=== PATIENT | male | born 1950 | race Caucasian/White ===

== ENCOUNTER → 2017-10-24 | Outpatient (CLI) | payer MEDICARE, OTHER ==
--- NOTE | 2017-10-24 15:50 | US ---
EXAMINATION TYPE: US carotid duplex BILAT DATE OF EXAM: 10/24/2017 COMPARISON: NONE CLINICAL HISTORY: I25.2 Previous myocardial infarction. Possible obstruction on the right, no h/o str laisha, bruit EXAM MEASUREMENTS: RIGHT: Peak Systolic Velocity (PSV) cm/sec ----- Right CCA: 55.8 ----- Right ICA: 122.2 ----- Right ECA: 91.0 ICA/CCA ratio: 2.2 RIGHT: End Diastole cm/sec ----- Right CCA: 20.2 ----- Right ICA: 36.7 ----- Right ECA: 17.2 LEFT: Peak Systolic Velocity (PSV) cm/sec ----- Left CCA: 68.2 ----- Left ICA: 94.1 ----- Left ECA: 66.7 ICA/CCA ratio: 1.4 LEFT: End Diastole cm/sec ----- Left CCA: 26.1 ----- Left ICA: 40.9 ----- Left ECA: 17.2 VERTEBRALS (direction of flow): Right Vertebral: Antegrade Left Vertebral: Antegrade Rhythm: Normal Grayscale images show moderate to severe plaque centered near right carotid bulb. Velocity measuremen ts and ratios however remain within normal limits in the right internal carotid artery. There is more mild to moderate eccentric plaque near left carotid bulb. IMPRESSION: Right greater than left atherosclerotic change without hemodynamically significant stenos is clearly seen in either internal carotid artery.
== END | disposition home or self-care (01) ==
LOC: RADUSWWP 15:12
PROVIDERS: ATTEND Family Medicine
DX: I65.23 Occlusion and stenosis of bilateral carotid arteries (principal)
CPT/HCPCS: 93880

== ENCOUNTER 2021-09-20 18:13 | Inpatient (IN) | payer MEDICARE, OTHER ==
[2021-09-20] MEDS ORDERED: fentaNYL (PF) 50 MCG/ML 2 ML AMP IVP STA (18:49)
--- NOTE | 2021-09-20 19:13 | ED ---
General Adult HPI - General Chief complaint: Fall Stated complaint: Fall/Hip Injury Time Seen by Provider: 09/20/21 18:21 Source: patient, EMS Mode of arrival: EMS Limitations: no limitations - History of Present Illness Initial comments: Dictation was produced using [employer] dictation software. please excuse any grammatical, word or spelling errors. Chief Complaint: 71-year-old male presents with left hip pain after fall History of Present Illness: 71-year-old male he presents to the emergency Department with left hip pain after fall. Patient states he was going down the steps when he got distracted acute onto the street. He thought he was in the last step. He missed a step and fell forward landing on his left side. EMS was called patient is brought to the ER. Patient states he has severe left-sided hip pain. States he has had but did not lose any consciousness. Patient has any other complaints at this time. Denies any numbness distally paresthesias to the left lower extremity. Patient does not take any anticoagulation medications. He does have a lot of history of cardiac disease The ROS documented in this emergency department record has been reviewed and confirmed by me. Those systems with pertinent positive or negative responses have been documented in the HPI. All other systems are other negative and/or noncontributory. PHYSICAL EXAM: General Impression: Alert and oriented x3, not in acute distress HEENT: Normocephalic atraumatic, extra-ocular movements intact, pupils equal and reactive to light bilaterally, mucous membranes moist. Cardiovascular: Heart regular rate and rhythm Chest: Able to complete full sentences, no retractions, no tachypnea Abdomen: abdomen soft, non-tender, non-distended, no organomegaly Musculoskeletal: Pulses present and equal in all extremities, no peripheral ed castor, shortened and internally rotated left lower extremity Motor: no focal deficits noted Neurological: CN II-XII grossly intact, no focal motor or sensory deficits noted Skin: Intact with no visualized rashes Psych: Normal affect and mood ED course: 71-year-old male presents with left hip pain after fall. As upon arrival are within acceptable limits. Patient has gross deformity to his left hip. EKG interpretation: Ventricular rate 59, sinus bradycardia,. Interval 90, Q's 90, QTC 371. No TN prolongation, no QTC prolongation, no ST or T-wave changes noted. EKG compared to 09/29/2015 showing no changes. Overall, this EKG is unremarkable Laboratory evaluation obtained. Mild stress leukocytosis. Coag panel is unremarkable. Metabolic panel is normal. Chest x-ray unremarkable. Pelvis hip and femur x-ray demonstrates acute comminuted intertrochanteric fracture of the left femur. Computed tomography scan of brain is unremarkable. Patient reevaluated at bedside at 9:30 PM found to be in stable medical condition. Case discussed with on-call orthopedic surgeon, Dr. Rojas was willing to accept patients care. Dr. Brown will be on consult for medical management. - Related Data Home Medications Medication Instructions Recorded Confirmed Aspirin 81 mg PO DAILY 04/22/15 09/20/21 Atorvastatin [Lipitor] 80 mg PO HS 04/22/15 09/20/21 Citalopram Hydrobromide [CeleXA] 20 mg PO HS 04/22/15 09/20/21 Multivit-Min/FA/Lycopen/Lutein 1 tab PO DAILY@1200 04/23/15 09/20/21 [Centrum Silver Tablet] Acetaminophen/Diphenhydramine 1 tab PO HS 09/20/21 09/20/21 [Tylenol PM 500-25mg] Ergocalciferol (Vitamin D2) 1,250 mcg PO QMONTHLY 09/20/21 09/20/21 [Drisdol (50,000 Iu)] Omeprazole 20 mg PO BID 09/20/21 09/20/21 Previous Rx's Medication Instructions Recorded Furosemide [Lasix] 20 mg PO DAILY #90 tab 10/03/15 Losartan [Cozaar] 25 mg PO DAILY@1200 #90 tab 10/03/15 Spironolactone 50 mg PO DAILY #90 tab 10/03/15 carvediloL [Coreg] 3.125 mg PO BID #180 tablet 10/03/15 Allergies Allergy/AdvReac Type Severity Reaction Status Date / Time No Known Allergies Allergy Verified 09/20/21 19:29 Review of Systems ROS Statement: Those systems with pertinent positive or pertinent negative responses have been documented in the HPI. ROS Other: All systems not noted in ROS Statement are negative. Past Medical History Past Medical History: Chest Pain / Angina, Heart Failure, GERD/Reflux, Hypertension, Myocardial Infarction ([place]), Pneumonia Additional Past Medical History / Comment(s): SEE DR MARAVILLA'S H&P Last Myocardial Infarction Date:: 02/14/1999 History of Any Multi-Drug Resistant Organisms: MRSA Date of last positivie culture/infection: 04/24/15 MDRO Source:: sputum Past Surgical History: Heart Catheterization With Stent Additional Past Surgical History / Comment(s): HEART VALVE REPLACEMENT, EAR SURGERIES,HEART STENT X 1 Past Anesthesia/Blood Transfusion Reactions: No Reported Reaction Date of Last Stent Placement:: 1998 Past Psychological History: Anxiety Smoking Status: Former smoker Past Alcohol Use History: Daily Past Drug Use History: Marijuana - Past Family History Father Family Medical History: Cancer, Myocardial Infarction ([place]) Additional Family Medical History / Comment(s): hodgkins lymphoma Mother Family Medical History: Cancer Additional Family Medical History / Comment(s): colon Sister(s) History Unknown: Yes General Exam Limitations: no limitations Course Vital Signs 09/20/21 18:21 Temperature 99.3 F Pulse Rate 61 Respiratory 18 Rate Blood Pressure 104/68 O2 Sat by Pulse 98 Oximetry Medical Decision Making - Lab Data Result diagrams: 09/20/21 19:40 09/20/21 19:40 Lab Results 09/20/21 09/20/21 09/20/21 Range/Units 19:40 19:40 19:40 WBC 15.5 H (3.8-10.6) k/uL RBC 4.11 L (4.30-5.90) m/uL Hgb 13.2 (13.0-17.5) gm/dL Hct 40.7 (39.0-53.0) % MCV 99.0 (80.0-100.0) fL MCH 32.0 (25.0-35.0) pg MCHC 32.3 (31.0-37.0) g/dL RDW 11.1 L (11.5-15.5) % Plt Count 176 (150-450) k/uL MPV 10.6 Neutrophils % 82 % Lymphocytes % 10 % Monocytes % 5 % Eosinophils % 2 % Basophils % 0 % Neutrophils # 12.7 H (1.3-7.7) k/uL Lymphocytes # 1.6 (1.0-4.8) k/uL Monocytes # 0.7 (0-1.0) k/uL Eosinophils # 0.3 (0-0.7) k/uL Basophils # 0.1 (0-0.2) k/uL PT 11.0 (9.0-12.0) sec INR 1.0 (<1.2) APTT 23.2 (22.0-30.0) sec Sodium 138 (137-145) mmol/L Potassium 4.2 (3.5-5.1) mmol/L Chloride 103 (98-107) mmol/L Carbon Dioxide 27 (22-30) mmol/L Anion Gap 8 mmol/L BUN 17 (9-20) mg/dL Creatinine 1.03 (0.66-1.25) mg/dL Est GFR (CKD-EPI)AfAm 84 (>60 ml/min/1.73 sqM) Est GFR (CKD-EPI)NonAf 73 (>60 ml/min/1.73 sqM) Glucose 137 H (74-99) mg/dL Calcium 8.8 (8.4-10.2) mg/dL Total Bilirubin 0.5 (0.2-1.3) mg/dL AST 26 (17-59) U/L ALT 17 (4-49) U/L Alkaline Phosphatase 93 (38-126) U/L Total Protein 7.3 (6.3-8.2) g/dL Albumin 4.3 (3.5-5.0) g/dL Disposition Clinical Impression: Hip fracture Disposition: ADMITTED IP TO THIS [facility] Condition: Serious Referrals: Edy Brown MD [Primary Care Provider] - 1-2 days Decision Time: 21:29
--- NOTE | 2021-09-20 19:27 | XR ---
EXAMINATION TYPE: XR chest 1V portable DATE OF EXAM: 09/20/2021 COMPARISON: 12/02/2015 HISTORY: Fall. Pain TECHNIQUE: Single view FINDINGS: Heart is normal. Lungs are clear of consolidation. There are no hilar masses. Costophrenic angles are clear. There is left axillary pacemaker. IMPRESSION: No active clinical pulmonary disease. No change.
--- NOTE | 2021-09-20 19:30 | XR ---
EXAMINATION TYPE: XR pelvis AP view DATE OF EXAM: 09/20/2021 COMPARISON: NONE HISTORY: Fall. Pain TECHNIQUE: 2 views FINDINGS: There is acute comminuted intertrochanteric fracture left femur. There is coxa vera deformi ty. No dislocation. Pelvic ring is intact. IMPRESSION: Acute comminuted intertrochanteric fracture left femur.
--- NOTE | 2021-09-20 19:31 | XR ---
EXAMINATION TYPE: XR Hip Complete LT DATE OF EXAM: 09/20/2021 COMPARISON: NONE HISTORY: Fall. Pain TECHNIQUE: 2 views FINDINGS: There is acute comminuted intertrochanteric fracture left femur with some impaction. No dis location. Acetabulum is intact. IMPRESSION: Acute left hip fracture as above.
--- NOTE | 2021-09-20 19:35 | XR ---
EXAMINATION TYPE: XR femur LT DATE OF EXAM: 09/20/2021 COMPARISON: NONE HISTORY: Pain TECHNIQUE: 4 views FINDINGS: There is acute comminuted intertrochanteric fracture left femur. There is coxa vera deformi ty. No dislocation. Knee joint appears anatomic. IMPRESSION: Acute intertrochanteric comminuted fracture left femur.
[2021-09-20 19:59] LABS: Basophils # (A) 0.1 k/uL (0-0.2); Basophils % (A) 0 %; Eosinophils # (A) 0.3 k/uL (0-0.7); Eosinophils % (A) 2 %; HCT 40.7 % (39.0-53.0); HGB 13.2 gm/dL (13.0-17.5); Lymphocytes # (A) 1.6 k/uL (1.0-4.8); Lymphocytes % (A) 10 %; MCHC 32.3 g/dL (31.0-37.0); Mean Platelet Volume 10.6; Monocytes # (A) 0.7 k/uL (0-1.0); Monocytes % (A) 5 %; Neutrophils # (A) 12.7 k/uL (1.3-7.7); Neutrophils % (A) 82 %; Platelet Count 176 k/uL (150-450); RBC 4.11 m/uL (4.30-5.90); RDW 11.1 % (11.5-15.5); WBC 15.5 k/uL (3.8-10.6)
[2021-09-20 20:11] LABS: Albumin 4.3 g/dL (3.5-5.0); Calcium 8.8 mg/dL (8.4-10.2); Potassium 4.2 mmol/L (3.5-5.1); Total Bilirubin 0.5 mg/dL (0.2-1.3); Total Protein 7.3 g/dL (6.3-8.2)
[2021-09-20 20:21] LABS: Partial Thromboplastin Time 23.2 sec (22.0-30.0)
--- NOTE | 2021-09-20 21:18 | CT ---
EXAMINATION TYPE: CT brain wo con DATE OF EXAM: 09/20/2021 COMPARISON: None HISTORY: fall CT DLP: 1107.4 mGycm Automated exposure control for dose reduction was used. Images obtained of the brain with no contrast. There is mild cerebral atrophy. There is no mass effect or midline shift. No sign of intracranial hem orrhage. The calvarium is intact. Skull base is intact. There is previous left side mastoid sinus jose angel yesenia. IMPRESSION: Negative CT scan of the brain. Previous left side mastoid surgery. No acute intracranial abnormality.
[2021-09-20] MEDS ORDERED: NALOXONE 0.4 MG/ML 1 ML VIAL IV PRN (21:21)
[2021-09-20] MEDS ORDERED: ONDANSETRON 4 MG/2 ML VIAL IVP PRN (21:21)
[2021-09-20] MEDS ORDERED: ACETAMINOPHEN TAB 325 MG TAB PO PRN (21:21)
[2021-09-20] MEDS: SODIUM CHLORIDE 0.9% 1,000 ML IV SCH (22:38)
[2021-09-20] MEDS: MORPHINE SULFATE 4 MG/ML SYRINGE IV PRN (22:39)
[2021-09-21] MEDS: MORPHINE SULFATE 4 MG/ML SYRINGE IV PRN ×4 (03:02→16:47)
[2021-09-21] MEDS: SODIUM CHLORIDE 0.9% 1,000 ML IV SCH ×3 (07:30→21:24)
[2021-09-21] MEDS ORDERED: PANTOPRAZOLE 40 MG/10 ML VIAL IV SCH (09:00)
--- NOTE | 2021-09-21 10:39 | P.HPOR ---
History of Present Illness H&P Date: 09/21/21 This patient is a 71-year-old male with past medical history of CAD status-post stent placement, heart valve replacement, pacemaker, CHF, hypertension that presented typically reported emergency department on 09/20/21 with complaints of left hip pain following a fall at home. The patient states he tripped going down the steps of his patio, and fell directly into the left hip. He is unable to get up or ambulate. His called EMS and he was transported to [facility] emergency department. X-rays of the left hip in the emergency department revealed an intertrochanteric hip fracture. He is admitted to the care of Dr. Rojas with a consult placed to Dr. Brown for preoperative medi tab clearance. Patient is examined bedside this morning. He states his pain is isolated to the left hip pain. He denies additional complaints or injuries at this time. He states he is not on blood thinners besides 81 mg aspirin. He did not hit his head when he fell. He denies chest pain, shortness breath, nausea, vomiting, fevers, chills, numbness or tingling in the left lower extremity. Vital signs stable. Past Medical History Past Medical History: Chest Pain / Angina, Heart Failure, GERD/Reflux, Hypertension, Myocardial Infarction ([place]), Pneumonia Additional Past Medical History / Comment(s): SEE DR MARAVILLA'S H&P Last Myocardial Infarction Date:: 02/14/1999 History of Any Multi-Drug Resistant Organisms: MRSA Date of last positivie culture/infection: 04/24/15 MDRO Source:: sputum Past Surgical History: Heart Catheterization With Stent Additional Past Surgical History / Comment(s): HEART VALVE REPLACEMENT, EAR SURGERIES,HEART STENT X 1 Past Anesthesia/Blood Transfusion Reactions: No Reported Reaction Date of Last Stent Placement:: 1998 Past Psychological History: Anxiety Additional Psychological History / Comment(s): PTSD. . Has 3 adult children. Normally lives in [place]. His admission for 1 month to stay in her home in [place]. He is originally from this region. He moved to [place] when he was in the [employer]. 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 Has now retir ed. Has a history of tobacco use in the past. Has been many years. No history of alcohol use. Recreational drug use. When he was in the [employer] travels mostly to [place]. No international travel since his experience. No current animal exposures. Smoking Status: Former smoker Past Alcohol Use History: Daily Additional Past Alcohol Use History / Comment(s): QUIT SMOKING 2012 APPROX,SMOKED APPROX 40 YRS 2PPD Past Drug Use History: Marijuana - Past Family History Father Family Medical History: Cancer, Myocardial Infarction ([place]) Additional Family Medical History / Comment(s): hodgkins lymphoma Mother Family Medical History: Cancer Additional Family Medical History / Comment(s): colon Sister(s) History Unknown: Yes Medications and Allergies Home Medications Medication Instructions Recorded Confirmed Type Aspirin 81 mg PO DAILY 04/22/15 09/20/21 History Atorvastatin [Lipitor] 80 mg PO HS 04/22/15 09/20/21 History Citalopram Hydrobromide [CeleXA] 20 mg PO HS 04/22/15 09/20/21 History Multivit-Min/FA/Lycopen/Lutein 1 tab PO DAILY@1200 04/23/15 09/20/21 History [Centrum Silver Tablet] Furosemide [Lasix] 20 mg PO DAILY #90 tab 10/03/15 09/20/21 Rx Losartan [Cozaar] 25 mg PO DAILY@1200 #90 tab 10/03/15 09/20/21 Rx Spironolactone 50 mg PO DAILY #90 tab 10/03/15 09/20/21 Rx carvediloL [Coreg] 3.125 mg PO BID #180 tablet 10/03/15 09/20/21 Rx Acetaminophen/Diphenhydramine 1 tab PO HS 09/20/21 09/20/21 History [Tylenol PM 500-25mg] Ergocalciferol (Vitamin D2) 1,250 mcg PO QMONTHLY 09/20/21 09/20/21 History [Drisdol (50,000 Iu)] Omeprazole 20 mg PO BID 09/20/21 09/20/21 History Allergies Allergy/AdvReac Type Severity Reaction Status Date / Time No Known Allergies Allergy Verified 09/20/21 19:29 Physical Examination On examination, the patient is sitting up in bed in no apparent distress. He is alert and oriented 3. His head appears normocephalic and atraumatic. His breathing appears nonlabored. On inspection of his bilateral upper extremities, there are no obvious deformities or signs of trauma. On inspection of his right lower extremity, there are no obvious deformities or signs of trauma. On inspection of the left hip, there are no lacerations, abrasions, ecchymosis, erythema. Range of motion of the left hip is not tested at this time. There is no pain to palpation of the left knee, lower leg, ankle, foot. Patient has good strength and range of motion of the left ankle and toes, motor and sensory function is intact of the left lower extremity. Dorsalis pedis pulses easily palpable, the left lower extremity is warm and well perfused with brisk capillary refill distally. Calf is soft and nontender to palpation. Results Left hip and pelvis x-ray 09/21/21: Displaced intertrochanteric left hip fracture. - Labs Labs: Abnormal Lab Results - Last 24 Hours (Table) 09/20/21 09/20/21 Range/Units 19:40 19:40 WBC 15.5 H (3.8-10.6) k/uL RBC 4.11 L (4.30-5.90) m/uL RDW 11.1 L (11.5-15.5) % Neutrophils # 12.7 H (1.3-7.7) k/uL Glucose 137 H (74-99) mg/dL H & H 09/20/21 Range/Units 19:40 Hgb 13.2 (13.0-17.5) gm/dL Hct 40.7 (39.0-53.0) % Coagulation 09/20/21 Range/Units 19:40 INR 1.0 (<1.2) Result Diagrams: 09/20/21 19:40 09/20/21 19:40 Assessment and Plan Assessment: Left intertrochanteric hip fracture Plan: - The clinical and imaging findings were discussed with the patient. The patient was discussed in detail with Dr. Rojas. Recommend closed reduction and insertion gamma nail left hip this afternoon, pending medical clearance and consent. Patient gave verbal consent for surgery bedside this morning. - Non-weight bearing left lower extremity. Bed rest. - Pain management as needed. - Dr. Brown consulted for medical clearance. - NPO diet. Will plan for OR this afternoon.
--- NOTE | 2021-09-21 11:52 | CONS ---
CONSULTATION DATE OF SERVICE: 09/20/2021 CHIEF COMPLAINT: Fracture of left hip. HISTORY OF PRESENT ILLNESS: This is another admission for this 71-year-old white male who has been in fairly good health. He has had some cardiac issues in the past, but none of late. He was going down some stairs and thought that he only had one step to go, but there were actually two, and he fell on his left hip and sustained a left hip fracture. He denies any dizziness, lightheadedness, syncope, other injuries, shortness of breath, orthopnea, etc. REVIEW OF SYSTEMS: He has had no other symptoms than that involving the hip. He has had no shortness of breath, chest pain, abdominal pain, nausea, vomiting, hematemesis, melena, hematochezia, jaundice, hepatitis, renal failure, incontinence, nocturia, hematuria, etc. Past medical history, family history, and personal and social histories reveal that he is NOT ALLERGIC TO ANY MEDICATION. The medication he is taking currently includes: 1. Carvedilol 3.125 two tablets twice a day. 2. Lasix 20 mg once a day. 3. Losartan 25 mg once a day. 4. Atorvastatin 80 once a day. 5. Spironolactone 50 mg once a day. 6. Citalopram 20 mg once a day. 7. Gabapentin 300 mg at bedtime. 8. Omeprazole 20 mg twice a day. 9. Vitamin D 5000 units a day. 10.Aspirin 81 mg a day. He has had cardiac issues in the past and has had a biologic aortic valve replacement. He had a prior MA. He has had no recent chest pains, palpitations, orthopnea, etc. He used to smoke but does not any longer. He does exercise. PHYSICAL EXAMINATION: Blood pressure is 139/81 with a pulse of 83, respirations of 16. He is afebrile. In general he appears to be well developed, well developed, well nourished, in no acute distress. Skin color is normal. Skin is warm and dry. Lymph nodes are not enlarged. Head, ears, eyes, nose, mouth and throat are normal. Carotids are normal. Chest is clear. Cardiac exam demonstrates what sounds like a regular rate and rhythm. Abdomen is soft and nontender without any visceromegaly or masses. Bowel sounds are present. Extremities are normal except for the left hip and neurologically he is intact. He is admitted to the hospital with the diagnoses: 1. Fracture of left hip. 2. History of coronary artery disease. 3. History of aortic valve disease with aortic valve replacement. PLAN: 1. Bedrest. 2. IV fluids. 3. Preoperative cardiology consult. 4. He is cleared for surgery from my point of view. Thank you. Respectfully, Edy Brown II, M.D. ROSALBA / LEONID: [id number] /
--- NOTE | 2021-09-21 12:24 | CA ---
Transthoracic Echo Report Name: Colin Shafer Age: 71 Gender: M : 1950 Exam Date: 09/21/2021 10:57 Exam Location: [facility] Ht (in): 70 Wt (lb): 245 Ordering Physician: Kim Martinez Attending/Referring Phys: [id number], Juan [employer] Procedure CPT: Indications: LV function, surgical clearance Cardiac Hx: Technical Quality: Contrast 1: Total Dose (mL): Contrast 2: Total Dose (mL): MEASUREMENTS (Male / Female) Normal Values 2D ECHO LV Diastolic Diameter PLAX 5.5 cm 4.2 - 5.9 / 3.9 - 5.3 cm LV Systolic Diameter PLAX 3.8 cm IVS Diastolic Thickness 1.8 cm 0.6 - 1.0 / 0.6 - 0.9 cm LVPW Diastolic Thickness 1.4 cm 0.6 - 1.0 / 0.6 - 0.9 cm LV Relative Wall Thickness 0.6 LA Volume 71.9 cm??? 18 - 58 / 22 - 52 cm??? DOPPLER AV Peak Velocity 213.0 cm/s AV Peak Gradient 18.1 mmHg AV Mean Velocity 152.6 cm/s AV Mean Gradient 10.3 mmHg AV Velocity Time Integral 41.2 cm LVOT Peak Velocity 74.6 cm/s LVOT Peak Gradient 2.2 mmHg MV Area PHT 3.8 cm??? Mitral E Point Velocity 88.2 cm/s Mitral A Point Velocity 120.8 cm/s Mitral E to A Ratio 0.7 MV Deceleration Time 200.2 ms TR Peak Velocity 224.9 cm/s TR Peak Gradient 20.2 mmHg FINDINGS Left Ventricle Moderately increased left ventricular wall thickness. Apical septal, apical inferior katz hypokinesis. Left ventricular ejection fraction is estimated at 40-45%. Right Ventricle Right ventricle not well visualized. Right Atrium Right atrium not well visualized. Catheter/pacemaker wire in the right atrial cavity. Left Atrium Moderate left atrial dilatation. No evidence for an atrial septal defect. Mitral Valve Mitral valve not well visualized. Moderate mitral regurgitation. Aortic Valve Mild aortic stenosis with a peak gradient of 18 mmHg and a mean gradient of 10 mmHg. No aortic regurgitation. Tricuspid Valve Mild tricuspid regurgitation. Pulmonic Valve Pulmonic valve not well visualized. Pericardium No pericardial effusion. Aorta Aortic root and proximal ascending aorta not well visualized. CONCLUSIONS #1. Suboptimal study #2. Mild to moderate impaired LV function with hypokinesis of the septal and inferoapical area. Ejection fraction is 40-45%. #3. Mild aortic stenosis. #4. Moderate mitral regurgitation Previewed by: Dr. Sahara Ellington MD (Electronically Signed) Final Date: 21 September 2021 12:23
[2021-09-21] MEDS: LOSARTAN 25 MG TAB PO SCH (12:33)
--- NOTE | 2021-09-21 12:34 | P.CRDCN ---
History of Present Illness Consult date: 09/21/21 History of present illness: HISTORY OF PRESENT ILLNESS: This is a 71-year-old male with a past medical history significant for coronary artery disease with previous stenting, hypertension, ischemic cardiomyopathy with previous AICD implantation, and congestive heart failure. Patient [facility] with a [facility] We have been asked to see the patient in consultation for surgical clearance. Patient examined at the bedside. The patient presented to the hospital after suffering a fall at home. He was found to have a left hip fracture. He is scheduled for surgery this afternoon with orthopedics. The patient denies having any chest pain or pressure. He denies shortness of breath. He is laying flat in bed and appears to be comfortable. Patient's vital signs are stable. He is on room air with oxygen saturations greater then 92%. * EKG reveals sinus bradycardia with no signs of acute ischemia * Chest xray negative for acute process * Laboratory data: WBC 15.5. Hemoglobin 13.2. Platelet count 176. Sodium 138. Potassium 4.2. BUN 17. Creatinine 1.03. * Current home cardiac medications include Lipitor 80 mg at night, Lasix 20 mg daily, losartan 25 mg daily, spironolactone 50 mg daily, carvedilol 3.125 mg twice a day, and aspirin 81 mg daily * Echocardiogram obtained revealing ejection fraction 40-45%, apical septal, ap ical inferior wall hypokinesis, mild aortic stenosis, mild tricuspid regurgitation, moderate mitral regurgitation REVIEW OF SYSTEMS: At the time of my exam: CONSTITUTIONAL: Denies fever or chills. HEENT: Denies blurred vision, vision changes, or eye pain. Denies hemoptysis CARDIOVASCULAR: Denies chest pain. Denies orthopnea. Denies PND. Denies palpitations RESPIRATORY: Denies shortness of breath. GASTROINTESTINAL: Denies abdominal pain. Denies nausea or vomiting. HEMATOLOGIC: Denies bleeding disorders. GENITOURINARY: Denies any blood in urine. SKIN: Denies pruitis. Denies rash. PHYSICAL EXAM: VITAL SIGNS: Reviewed. GENERAL: Well-developed in no acute distress. HEENT: Head is normocephalic. Pupils are equal, round. Sclerae anicteric. Mucous membranes of the mouth are moist. Neck supple. No JVD or thyromegaly LUNGS: Respirations even and unlabored. Lungs essentially clear to auscultation bilaterally. HEART: Regular rate and rhythm. S1 and S2 heard. ABDOMEN: Soft. Nondistended. Nontender. EXTREMITIES: Normal range of motion. No clubbing or cyanosis. Peripheral pulses intact. No lower extremity edema NEUROLOGIC: Awake and alert. Oriented x 3. ASSESSMENT: Left hip fracture, status post fall Coronary artery disease with previous stenting, exact details unknown Ischemic cardiomyopathy with previous AICD implantation Chronic congestive heart failure with reduced ejection fraction, currently euvo lemic Hypertension Hyperlipidemia PLAN: 2D echo obtained and reviewed Continue home cardiac medications Patient is at higher risk due to cardiac history. He denies any angina and is currently euvolemic No absolute contraindications from a cardiac standpoint to undergo surgery with orthopedics Further recommendations pending patient course Nurse practitioner note has been reviewed by physician. Signing provider agrees with the documented findings, assessment, and plan of care. Past Medical History Past Medical History: Chest Pain / Angina, Heart Failure, GERD/Reflux, Hypertension, Myocardial Infarction (NM), Pneumonia Additional Past Medical History / Comment(s): SEE DR MARAVILLA'S H&P Last Myocardial Infarction Date:: 02/14/1999 History of Any Multi-Drug Resistant Organisms: MRSA Date of last positivie culture/infection: 04/24/15 MDRO Source:: sputum Past Surgical History: Heart Catheterization With Stent Additional Past Surgical History / Comment(s): HEART VALVE REPLACEMENT, EAR SURGERIES,HEART STENT X 1 Past Anesthesia/Blood Transfusion Reactions: No Reported Reaction Date of Last Stent Placement:: 1998 Past Psychological History: Anxiety Additional Psychological History / Comment(s): PTSD. . Has 3 adult felecia dudley. Normally lives in [place]. His admission for 1 month to stay in her home in [place]. He is originally from this region. He moved to [place] when he was in the [employer]. 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 Has a history of tobacco use in the past. Has been many years. No history of alcohol use. Recreational drug use. When he was in the [employer] travels mostly to [place]. No international travel since his experience. No current animal exposures. Smoking Status: Former smoker Past Alcohol Use History: Daily Additional Past Alcohol Use History / Comment(s): QUIT SMOKING 2012 APPROX,SMOKED APPROX 40 YRS 2PPD Past Drug Use History: Marijuana - Past Family History Father Family Medical History: Cancer, Myocardial Infarction (NM) Additional Family Medical History / Comment(s): hodgkins lymphoma Mother Family Medical History: Cancer Additional Family Medical History / Comment(s): colon Sister(s) History Unknown: Yes Medications and Allergies Home Medications Medication Instructions Recorded Confirmed Type Aspirin 81 mg PO DAILY 04/22/15 09/20/21 History Atorvastatin [Lipitor] 80 mg PO HS 04/22/15 09/20/21 History Citalopram Hydrobromide [CeleXA] 20 mg PO HS 04/22/15 09/20/21 History Multivit-Min/FA/Lycopen/Lutein 1 tab PO DAILY@1200 04/23/15 09/20/21 History [Centrum Silver Tablet] Furosemide [Lasix] 20 mg PO DAILY #90 tab 10/03/15 09/20/21 Rx Losartan [Cozaar] 25 mg PO DAILY@1200 #90 tab 10/03/15 09/20/21 Rx Spironolactone 50 mg PO DAILY #90 tab 10/03/15 09/20/21 Rx carvediloL [Coreg] 3.125 mg PO BID #180 tablet 10/03/15 09/20/21 Rx Acetaminophen/Diphenhydramine 1 tab PO HS 09/20/21 09/20/21 History [Tylenol PM 500-25mg] Ergocalciferol (Vitamin D2) 1,250 mcg PO QMONTHLY 09/20/21 09/20/21 History [Drisdol (50,000 Iu)] Omeprazole 20 mg PO BID 09/20/21 09/20/21 History Allergies Allergy/AdvReac Type Severity Reaction Status Date / Time No Known Allergies Allergy Verified 09/20/21 19:29 Physical Exam Vitals: Vital Signs Temp Pulse Pulse Resp BP BP Pulse Ox 09/21/21 03:05 99.0 F 70 16 119/78 95 09/21/21 00:00 97.6 F 18 136/90 95 09/20/21 22:53 69 14 123/77 96 09/20/21 18:21 99.3 F 61 18 104/68 98 Intake and Output 09/20/21 09/21/21 09/21/21 22:59 06:59 14:59 Output Total 200 Balance -200 Output: Urine 200 Other: Voiding Method Urinal Urinal Weight 111.13 kg 111.13 kg Results 09/20/21 19:40 09/20/21 19:40 Cardiac Enzymes 09/20/21 Range/Units 19:40 AST 26 (17-59) U/L Coagulation 09/20/21 Range/Units 19:40 PT 11.0 (9.0-12.0) sec APTT 23.2 (22.0-30.0) sec CBC 09/20/21 Range/Units 19:40 WBC 15.5 H (3.8-10.6) k/uL RBC 4.11 L (4.30-5.90) m/uL Hgb 13.2 (13.0-17.5) gm/dL Hct 40.7 (39.0-53.0) % Plt Count 176 (150-450) k/uL Comprehensive Metabolic Panel 09/20/21 Range/Units 19:40 Sodium 138 (137-145) mmol/L Potassium 4.2 (3.5-5.1) mmol/L Chloride 103 (98-107) mmol/L Carbon Dioxide 27 (22-30) mmol/L BUN 17 (9-20) mg/dL Creatinine 1.03 (0.66-1.25) mg/dL Glucose 137 H (74-99) mg/dL Calcium 8.8 (8.4-10.2) mg/dL AST 26 (17-59) U/L ALT 17 (4-49) U/L Alkaline Phosphatase 93 (38-126) U/L Total Protein 7.3 (6.3-8.2) g/dL Albumin 4.3 (3.5-5.0) g/dL Current Medications Generic Name Dose Route Start Last Admin Trade Name Freq PRN Reason Stop Dose Admin Acetaminophen 650 mg 09/20/21 21:21 09/20/21 22:39 Acetaminophen Tab 325 Mg Tab PO 650 mg Q6HR PRN Administration Mild Pain or Fever > 100.5 Aspirin 81 mg 09/22/21 09:00 Aspirin 81 Mg PO DAILY [facility] Atorvastatin Calcium 80 mg 09/21/21 21:00 Atorvastatin 80 Mg Tab PO HS [facility] Carvedilol 3.125 mg 09/21/21 21:00 Carvedilol 3.125 Mg Tab PO BID [facility] Citalopram Hydrobromide 20 mg 06/07/22 21:00 Citalopram Hydrobromide 20 Mg Tab PO HS [facility] Sodium Chloride 1,000 mls @ 130 mls/hr 09/20/21 21:30 09/21/21 07:30 Saline 0.9% IV Not Given .Q7H42M [facility] Losartan Potassium 25 mg 09/21/21 12:00 Losartan 25 Mg Tab PO DAILY@1200 CALLIE Morphine Sulfate 4 mg 09/20/21 21:21 09/21/21 07:41 Morphine Sulfate 4 Mg/Ml Syringe IV 4 mg Q4HR PRN Administration Severe Pain Naloxone HCl 0.2 mg 09/20/21 21:21 Naloxone 0.4 Mg/Ml 1 Ml Vial IV Q2M PRN Opioid Reversal Ondansetron HCl 4 mg 09/20/21 21:21 09/21/21 07:40 Ondansetron 4 Mg/2 Ml Vial IVP 4 mg Q8HR PRN Administration Nausea And Vomiting Pantoprazole Sodium 40 mg 09/22/21 07:30 Pantoprazole 40 Mg Tablet PO DAILY@0730 [facility] Intake and Output 09/20/21 09/21/21 09/21/21 22:59 06:59 14:59 Output Total 200 Balance -200 Output: Urine 200 Other: Voiding Method Urinal Urinal Weight 111.13 kg 111.13 kg 09/20/21 19:40 09/20/21 19:40
[2021-09-21] MEDS ORDERED: KETAMINE 10 MG/ML 20 ML VIAL ONE (18:09)
[2021-09-21] MEDS ORDERED: fentaNYL (PF) 50 MCG/ML 2 ML AMP ONE (18:09)
[2021-09-21] MEDS ORDERED: PROPOFOL 10 MG/ML 20 ML VIAL IV ONE (18:09)
[2021-09-21] MEDS ORDERED: MIDAZOLAM 2 MG/2 ML VIAL ONE (18:09)
[2021-09-21] MEDS ORDERED: IV FLUID CONTINUATION 1,000 ML IV ONE (18:13)
[2021-09-21] MEDS ORDERED: LACTATED RINGERS 1,000 ML IV ONE ×2 (19:04→20:46)
--- NOTE | 2021-09-21 20:38 | PN ---
PROGRESS NOTE CHIEF COMPLAINT: Hip fracture. HISTORY OF PRESENT ILLNESS: This gentleman is doing well and he is going to the OR later today. PHYSICAL EXAMINATION: His chest is clear. Cardiac exam is normal sinus rhythm. The abdomen is soft and nontender. IMPRESSION: 1. Fracture of the left hip. 2. History of cardiac disease. PLAN: Preoperative management, including a cardiology consult. ROSALBA / CELIAN: [id number] /
[2021-09-21] MEDS ORDERED: HYDROmorphone 0.5 MG/0.5 ML SYRINGE IVP PRN ×2 (20:39)
[2021-09-21] MEDS ORDERED: HYDROcodone/APAP 5-325MG 1 EACH TAB PO PRN (20:39)
--- NOTE | 2021-09-21 20:42 | P.OP ---
Date of Procedure: 09/21/21 Preoperative Diagnosis: 1. Left comminuted peritrochanteric hip fracture 2. History of coronary artery disease with a stent 3. CHF Postoperative Diagnosis: Same Procedure(s) Performed: Operative fixation of left intertrochanteric hip fracture with long intramedullary hip screw Anesthesia: GRETTA Surgeon: Francis Rojas Advertising Sales Manager #1: Courtney Hernandez Estimated Blood Loss (ml): 300 IV fluids (ml): 1,000 Urine output (ml): 300 Pathology: none sent Condition: stable Disposition: PACU Indications for Procedure: I met with the patient and their family preoperatively to discuss their injury and treatment options. They have an extra-capsular, intertrochanteric hip fracture and my recommendation was to stabilize the fracture with an intramedullary hip screw to facilitate early mobilization. We discussed the potential risks and complications of this surgical procedure including but certainly not limited to risks from anesthesia, superficial infection, deep infection, fracture nonunion, fracture malunion, hardware failure including broken hardware, varus collapse with lag screw cut out of the femoral head, progression of hip arthritis, limb length discrepancy, symptomatic hardware, need for further surgery including hardware removal and conversion to arthroplasty, DVT, PE, acute coronary event, pressure ulcers, urinary tract infection, failure to thrive, an inability to regain preinjury level of function, and possibly . The patient and their family understand these potential complications and also awknowledge that other less common complications are possible. They provided both their verbal and written consent to go forward with operative fixation of their hip fracture with an intramedullary hip screw. Description of Procedure: The patient was identified in preoperative holding and the correct operative extremity was marked with my initials. I reviewed the consent form with the patient and their family and all of their questions were answered. The patient was then brought back to the operating room by anesthesia. Anesthesia, preoperative antibiotics, and tranexamic acid were given by the anesthesia team while on the rgonzales. Both ankles were padded with webril and boots for the [place] table were applied. The patient was then carefully transferred onto the [place] table. A perineal post was immediately placed. The contralateral arm was secured on a well-padded arm iniguez. The ipsilateral arm was draped across the chest and secured with a pillow, foam, and paper tape to allow access to the proximal femur. Nonsterile drapes were applied to the operative extremity. The height of the table was elevated and the contralateral extremity was dropped towards the floor to facilitate imaging. A timeout was performed identifying the correct patient, operative extremity, and procedure. Fluoroscopy was brought in to assess the fracture. A provisional reduction was performed using longitudinal traction, adduction, and internal rotation. An AP and lateral view were obtained to assess the reduction. The operative extremity was then prepped and draped in the standard sterile fashion. A straight incision was made at the tip of the greater trochanter and extended proximally for 3 cm. Skin and subcutaneous tissues were incised sharply. The underlying fascia was incised in line with the skin incision. An awl was placed just medial to the tip of the greater trochanter on the AP view and colinear with the canal on the lateral view. A 3.2 mm guide pin was then advanced into the proximal femur. The position of the guidepin was verified with fluoroscopy. An opening reamer and soft tissue cannula were placed over the guidepin and used to open the proximal femur to the level of the lesser trochanter. The 3.2 mm guide pin and opening reamer were removed. The long ball-tipped guidewire was placed down to the level of the superior patella. The position of the guidewire was checked on orthogonal views. I then sequentially reamed up to an 11 mm reamer which generated chatter. I then reamed up to 12.5 mm. A long gamma nail was dispensed, hooked up to the targeting arm and I verified that the trochar through the targeting arm lined up with the slots on the nail. The nail was then impacted into the femur until the appropriate depth had been reached. The ball-tipped guidewire was removed. A small stab incision was made over the lateral aspect of the femur using the targeting arm as a reference for the lag screw. Incision was carried down to the skin and fascia down to the lateral cortex of the femur. The trocar was then placed up to the lateral cortex of the femur and a guidepin was placed in the low center position on the AP view and centered in the femoral head on the lateral view. Once the position of the guidewire was verified, we reamed to appropriate depth and placed a lag screw over the guidewire and into the femoral head. The position of the lag screw was assessed with fluoroscopy. The guidewire was then removed from the femoral head. The set screw was placed proximally, brought fully down and then released a quarter turn to allow compression. 2 distal interlocking screws were placed using the perfect kaibab, freehand technique.The trocar and sleeve were placed to the lateral cortex of the femur. We then drilled and placed a distal interlocking screw. Final fluoroscopic images were taken showing excellent reduction of the fracture and appropriate position of the implants. All wounds were thoroughly irrigated and closed in layers. Sterile dressings were applied. The drapes were taken down, the patient was transferred off the [place] table, and was brought to recovery having tolerated the procedure well. Courtney Hernandez PA-C was required as a skilled assistant manager quality management for patient positioning, retraction, placement of implants, closure of wounds, and application of dressings. PLAN: Due to the comminution of the fracture I would like him to toe touch weight-bear on his operative extremity. 2 doses of postoperative antibiotics. DVT prophylaxis with aspirin 81 mg twice a day starting the day of surgery. Dressing change on postoperative day #2. Appreciate [employer] [employer] assistance with perioperative medical management. Discharge planning in process.
[2021-09-21] MEDS: SENNOSIDES-DOCUSATE SODIUM 1 EACH TAB PO SCH (21:24)
[2021-09-21] MEDS: CITALOPRAM HYDROBROMIDE 20 MG TAB PO SCH (21:24)
[2021-09-21] MEDS: carvediloL 3.125 MG TAB PO SCH (21:24)
[2021-09-21] MEDS: ASPIRIN 81 MG PO SCH (21:24)
[2021-09-21] MEDS: ATORVASTATIN 80 MG TAB PO SCH (21:24)
[2021-09-21] MEDS: HYDROmorphone 0.5 MG/0.5 ML SYRINGE IVP PRN (22:03)
--- NOTE | 2021-09-21 22:10 | XR ---
EXAMINATION TYPE: XR Hip Limited LT DATE OF EXAM: 09/21/2021 COMPARISON: NONE HISTORY: Hip surgery TECHNIQUE: FINDINGS: 3 minutes and 12 seconds fluoroscopy time was recorded. There is a series of images show placement of intramedullary mary ellen and transverse screw fixing the comm inuted intertrochanteric fracture of the left femur. No complicating process seen.
[2021-09-21 22:32] LABS: Basophils % (A) 0 %; Eosinophils # (A) 0.1 k/uL (0-0.7); Eosinophils % (A) 1 %; HCT 35.5 % (39.0-53.0); HGB 11.3 gm/dL (13.0-17.5); Lymphocytes # (A) 1.4 k/uL (1.0-4.8); Lymphocytes % (A) 6 %; MCH 31.8 pg (25.0-35.0); MCHC 31.8 g/dL (31.0-37.0); MCV 100.2 fL (80.0-100.0); Mean Platelet Volume 10.6; Monocytes # (A) 1.3 k/uL (0-1.0); Monocytes % (A) 6 %; Neutrophils # (A) 18.3 k/uL (1.3-7.7); Neutrophils % (A) 86 %; Platelet Count 166 k/uL (150-450); RBC 3.54 m/uL (4.30-5.90); RDW 11.2 % (11.5-15.5); WBC 21.3 k/uL (3.8-10.6)
[2021-09-22] MEDS: HYDROmorphone 0.5 MG/0.5 ML SYRINGE IVP PRN ×4 (01:40→20:36)
[2021-09-22] MEDS: SODIUM CHLORIDE 0.9% 1,000 ML IV SCH (04:18)
[2021-09-22] MEDS: HYDROcodone/APAP 5-325MG 1 EACH TAB PO PRN ×3 (05:30→18:14)
[2021-09-22] MEDS: PANTOPRAZOLE 40 MG TABLET PO SCH (07:35)
[2021-09-22] MEDS: carvediloL 3.125 MG TAB PO SCH ×2 (07:35→20:33)
[2021-09-22] MEDS: ASPIRIN 81 MG PO SCH ×2 (07:36→20:34)
--- NOTE | 2021-09-22 08:11 | FL ---
Fluoroscopy History: L GAMMA NAIL INSERTION LT IM rodding with Dr. Rojas. 3 min 12 sec fluoro time. 8 images saved.
[2021-09-22] MEDS: FUROSEMIDE 20 MG TAB PO SCH (08:39)
[2021-09-22] MEDS: SPIRONOLACTONE 25 MG TAB PO SCH (08:39)
[2021-09-22] MEDS ORDERED: ASPIRIN 81 MG PO SCH (09:00)
--- NOTE | 2021-09-22 09:47 | P.PN ---
Subjective Progress Note Date: 09/22/21 This patient is a 71- year old male who is status-post operative fixation of left intertrochanteric hip fracture with long intramedullary hip screw on 09/21/21. Today is post-operative day #1. Patient is seen and examined bedside this morning. He is up to the bedside chair. He is complaining of moderate pain in the left thigh. He is also experience mild nausea. He was up with physical therapy this morning. He denies chest pain, shortness of breath. Vital signs stable. Objective - Vital Signs Vital signs: Vital Signs Temp 98.2 F 09/22/21 04:46 Pulse 74 09/22/21 04:46 Resp 18 09/22/21 06:17 BP 131/76 09/22/21 04:46 Pulse Ox 95 09/22/21 06:17 FiO2 Intake & Output 09/21/21 09/22/21 09/22/21 18:59 06:59 18:59 Intake Total 2009 2000 Output Total 1000 Balance 2009 1000 Intake: IV 450 1000 Intake, IV Titration 1560 Amount Sodium Chloride 0.9% 1, 1560 000 ml @ 130 mls/hr IV . Q7H42M [facility] Rx#:[id number] Oral 1000 Output: Urine 700 Estimated Blood Loss 300 Other: Voiding Method Urinal Indwelling Catheter - Exam On examination, patient is sitting up in the bedside chair in no apparent distress. He is alert and oriented 3. On inspection of the left hip and thigh, there are 3 clean, dry, intact OpSite dressings in place. No bleeding or drainage to the dressings. There is mild swelling of the thigh, the thigh soft compressible. Patient has good strength and range of motion of the left ankle and toes, motor and sensory function is intact of the left lower extremity. Dorsalis pedis pulses easily palpable, the left lower extremity was warm and well perfused. Calf is soft and nontender to palpation. - Labs CBC & Chem 7: 09/21/21 22:20 09/20/21 19:40 Labs: Abnormal Lab Results - Last 24 Hours (Table) 09/21/21 Range/Units 22:20 WBC 21.3 H (3.8-10.6) k/uL RBC 3.54 L (4.30-5.90) m/uL Hgb 11.3 L (13.0-17.5) gm/dL Hct 35.5 L (39.0-53.0) % MCV 100.2 H (80.0-100.0) fL RDW 11.2 L (11.5-15.5) % Neutrophils # 18.3 H (1.3-7.7) k/uL Monocytes # 1.3 H (0-1.0) k/uL Assessment and Plan Assessment: Status-post operative fixation of left intertrochanteric hip fracture with long intramedullary hip screw on 09/21/21. Post-operative day #1. Plan: - Toe-touch weightbearing on left lower extremity. Up with assistance, up with a walker. - Physical therapy for gait and balance training. - Pain management as needed. - Aspirin 81 mg BID for DVT prophylaxis. - 2 doses post-operative IV antibiotics. - Internal medicine, cardiology following for janeth-operative medical managemen t. - Case management consulted for discharge planning. Anticipate discharge to rehab.
--- NOTE | 2021-09-22 10:25 | P.PN ---
Subjective Progress Note Date: 09/22/21 HISTORY OF PRESENT ILLNESS: This is a 71-year-old male with a past medical history significant for coronary artery disease with previous stenting, hypertension, ischemic cardiomyopathy with previous AICD implantation, and congestive heart failure. Patient follows with a Dr. Carey out of of . We have been asked to see the patient in consultation for surgical clearance. Patient examined at the bedside. The patient presented to the hospital after suffering a fall at home. He was found to have a left hip fracture. He is scheduled for surgery this afternoon with orthopedics. The patient denies having any chest pain or pressure. He denies shortness of breath. He is laying flat in bed and appears to be comfortable. Patient's vital signs are stable. He is on room air with oxygen saturations greater then 92%. * EKG reveals sinus bradycardia with no signs of acute ischemia * Chest xray negative for acute process * Laboratory data: WBC 15.5. Hemoglobin 13.2. Platelet count 176. Sodium 138. Potassium 4.2. BUN 17. Creatinine 1.03. * Current home cardiac medications include Lipitor 80 mg at night, Lasix 20 mg daily, losartan 25 mg daily, spironolactone 50 mg daily, carvedilol 3.125 mg twice a day, and aspirin 81 mg daily * Echocardiogram obtained revealing ejection fraction 40-45%, apical septal, apical inferior wall hypokinesis, mild aortic stenosis, mild tricuspid regurgitation, moderate mitral regurgitation 09/22/2021 The patient is status post left intertrochanteric hip fracture with long intramedullary hip screw. Patient examined this morning at the bedside. Patient denies any chest pain or pressure. He denies shortness of breath. The patient is currently receiving IV fluids at 75 mL an hour. His diuretics have been placed on hold. Vital signs are stable. PHYSICAL EXAM: VITAL SIGNS: Reviewed. GENERAL: Well-developed in no acute distress. HEENT: Head is normocephalic. Pupils are equal, round. Sclerae anicteric. Mucous membranes of the mouth are moist. Neck supple. No JVD or thyromegaly LUNGS: Respirations even and unlabored. Lungs essentially clear to auscultation bilaterally. HEART: Regular rate and rhythm. S1 and S2 heard. ABDOMEN: Soft. Nondistended. Nontender. EXTREMITIES: Normal range of motion. No clubbing or cyanosis. Peripheral pulses intact. No lower extremity edema NEUROLOGIC: Awake and alert. Oriented x 3. ASSESSMENT: Left hip fracture, status post fall Coronary artery disease with previous stenting, exact details unknown Ischemic cardiomyopathy with previous AICD implantation Chronic congestive heart failure with reduced ejection fraction, currently euvolemic Hypertension Hyperlipidemia PLAN: Continue current cardiac medications Discontinue IV fluids secondary to patient's history of cardiomyopathy and congestive heart failure Resume Lasix and Aldactone Further recommendations pending patient course Nurse practitioner note has been reviewed by physician. Signing provider agrees with the documented findings, assessment, and plan of care. Objective - Vital Signs Vital signs: Vital Signs Temp 98.2 F 09/22/21 04:46 Pulse 74 09/22/21 04:46 Resp 18 09/22/21 06:17 BP 131/76 09/22/21 04:46 Pulse Ox 95 09/22/21 06:17 FiO2 Intake & Output 09/21/21 09/22/21 09/22/21 18:59 06:59 18:59 Intake Total 2009 2000 Output Total 1000 Balance 2009 1000 Intake: IV 450 1000 Intake, IV Titration 1560 Amount Sodium Chloride 0.9% 1, 1560 000 ml @ 130 mls/hr IV . Q7H42M [facility] Rx#:[id number] Oral 1000 Output: Urine 700 Estimated Blood Loss 300 Other: Voiding Method Urinal Indwelling Catheter - Labs CBC & Chem 7: 09/21/21 22:20 09/20/21 19:40 Labs: Abnormal Lab Results - Last 24 Hours (Table) 09/21/21 Range/Units 22:20 WBC 21.3 H (3.8-10.6) k/uL RBC 3.54 L (4.30-5.90) m/uL Hgb 11.3 L (13.0-17.5) gm/dL Hct 35.5 L (39.0-53.0) % MCV 100.2 H (80.0-100.0) fL RDW 11.2 L (11.5-15.5) % Neutrophils # 18.3 H (1.3-7.7) k/uL Monocytes # 1.3 H (0-1.0) k/uL
[2021-09-22] MEDS: LOSARTAN 25 MG TAB PO SCH (11:38)
--- NOTE | 2021-09-22 14:47 | PN ---
PROGRESS NOTE CHIEF COMPLAINT: Status post for ORIF of left hip fracture. HISTORY OF PRESENT ILLNESS: This gentleman is doing well. He has had no chest pain, fever, chills, cough, confusion, etc. PHYSICAL EXAMINATION: Chest is clear. Cardiac exam is normal. Abdomen is soft, nontender. IMPRESSION: Status post ORIF of the left hip. PLAN: Postop care and management with physical therapy and discharge planning. MMODL / IJN: [id number] /
[2021-09-22] MEDS: ATORVASTATIN 80 MG TAB PO SCH (20:33)
[2021-09-22] MEDS: SENNOSIDES-DOCUSATE SODIUM 1 EACH TAB PO SCH (20:33)
[2021-09-22] MEDS: CITALOPRAM HYDROBROMIDE 20 MG TAB PO SCH (20:33)
[2021-09-23] MEDS: HYDROcodone/APAP 5-325MG 1 EACH TAB PO PRN ×2 (01:53→07:32)
[2021-09-23] MEDS: SPIRONOLACTONE 25 MG TAB PO SCH (07:29)
[2021-09-23] MEDS: carvediloL 3.125 MG TAB PO SCH (07:29)
[2021-09-23] MEDS: PANTOPRAZOLE 40 MG TABLET PO SCH (07:29)
[2021-09-23] MEDS: FUROSEMIDE 20 MG TAB PO SCH (07:29)
[2021-09-23] MEDS: ASPIRIN 81 MG PO SCH (07:30)
[2021-09-23] MEDS ORDERED: HYDROcodone/APAP 7.5-325MG 1 EACH TAB PO PRN ×2 (08:28→08:29)
[2021-09-23 11:53] LABS: Basophils # (A) 0.03 X 10*3/uL (0.00-0.10); Basophils % (A) 0.2 %; Eosinophils # (A) 0.27 X 10*3/uL (0.04-0.35); HCT 25.3 % (39.6-50.0); HGB 8.4 g/dL (13.0-17.0); Immature Grans, Automated 0.6 %; Lymphocytes # (A) 1.73 X 10*3/uL (0.90-5.00); Lymphocytes % (A) 13.1 %; MCH 32.3 pg (27.0-32.0); MCHC 33.2 g/dL (32.0-37.0); MCV 97.3 fL (80.0-97.0); Mean Platelet Volume 13.6 fL (9.5-12.2); Monocytes # (A) 1.88 X 10*3/uL (0.20-1.00); Monocytes % (A) 14.3 %; NRBC Per 100 WBC 0 /100 WBCS (0.0-0.0); Neutrophils # (A) 9.19 X 10*3/uL (1.80-7.70); Neutrophils % (A) 69.8 %; Platelet Count 126 X 10*3/uL (140-440); RDW 11.1 % (11.5-14.5); WBC 13.18 X 10*3/uL (4.50-10.00)
--- NOTE | 2021-09-23 12:00 | P.PN ---
Subjective Progress Note Date: 09/23/21 HISTORY OF PRESENT ILLNESS: This is a 71-year-old male with a past medical history significant for coronary artery disease with previous stenting, hypertension, ischemic cardiomyopathy with previous AICD implantation, and congestive heart failure. Patient [facility] a Dr. [facility] We have been asked to see the patient in consultation for surgical clearance. Patient examined at the bedside. The patient presented to the hospital after suffering a fall at home. He was found to have a left hip fracture. He is scheduled for surgery this afternoon with orthopedics. The patient denies having any chest pain or pressure. He denies shortness of breath. He is laying flat in bed and appears to be comfortable. Patient's vital signs are stable. He is on room air with oxygen saturations greater then 92%. * EKG reveals sinus bradycardia with no signs of acute ischemia * Chest xray negative for acute process * Laboratory data: WBC 15.5. Hemoglobin 13.2. Platelet count 176. Sodium 138. Potassium 4.2. BUN 17. Creatinine 1.03. * Current home cardiac medications include Lipitor 80 mg at night, Lasix 20 mg daily, losartan 25 mg daily, spironolactone 50 mg daily, carvedilol 3.125 mg twice a day, and aspirin 81 mg daily * Echocardiogram obtained revealing ejection fraction 40-45%, apical septal, apical inferior wall hypokinesis, mild aortic stenosis, mild tricuspid regurgitation, moderate mitral regurgitation 09/22/2021 The patient is status post left intertrochanteric hip fracture with long intramedullary hip screw. Patient examined this morning at the bedside. Patient denies any chest pain or pressure. He denies shortness of breath. The patient is currently receiving IV fluids at 75 mL an hour. His diuretics have been placed on hold. Vital signs are stable. 09/23/2021 Patient examined this morning at the bedside. Patient denies chest pain or pressure. He denies shortness of breath. He is working with physical therapy this morning. Vital signs are stable. PHYSICAL EXAM: VITAL SIGNS: Reviewed. GENERAL: Well-developed in no acute distress. HEENT: Head is normocephalic. Pupils are equal, round. Sclerae anicteric. Mucous membranes of the mouth are moist. Neck supple. No JVD or thyromegaly LUNGS: Respirations even and unlabored. Lungs essentially clear to auscultation bilaterally. HEART: Regular rate and rhythm. S1 and S2 heard. ABDOMEN: Soft. Nondistended. Nontender. EXTREMITIES: Normal range of motion. No clubbing or cyanosis. Peripheral pulses intact. No lower extremity edema NEUROLOGIC: Awake and alert. Oriented x 3. ASSESSMENT: Left hip fracture, status post fall Coronary artery disease with previous stenting, exact details unknown Ischemic cardiomyopathy with previous AICD implantation Chronic congestive heart failure with reduced ejection fraction, currently euvolemic Hypertension Hyperlipidemia PLAN: Continue current cardiac medications Patient is currently stable from a cardiac standpoint We will sign off. Please reconsult if needed. Nurse practitioner note has been reviewed by physician. Signing provider agrees with the documented findings, assessment, and plan of care. Objective - Vital Signs Vital signs: Vital Signs Temp 98.7 F 09/23/21 05:00 Pulse 78 09/23/21 05:00 Resp 16 09/23/21 05:00 BP 101/62 09/23/21 05:00 Pulse Ox 95 09/23/21 05:00 FiO2 Intake & Output 09/22/21 09/23/21 09/23/21 18:59 06:59 18:59 Intake Total 590 Balance 590 Intake: Oral 590 Other: Voiding Method Toilet Urinal # Voids 2 2 - Labs CBC & Chem 7: 09/23/21 07:57 09/20/21 19:40 Labs: Abnormal Lab Results - Last 24 Hours (Table) 09/23/21 Range/Units 07:57 WBC 13.18 H (4.50-10.00) X 10*3/uL RBC 2.60 L (4.40-5.60) X 10*6/uL Hgb 8.4 L (13.0-17.0) g/dL Hct 25.3 L (39.6-50.0) % MCV 97.3 H (80.0-97.0) fL MCH 32.3 H (27.0-32.0) pg RDW 11.1 L (11.5-14.5) % Plt Count 126 L (140-440) X 10*3/uL Plt Count Comment DECREASED A MPV 13.6 H (9.5-12.2) fL Immature Gran # 0.08 H (0.00-0.04) X 10*3/uL Neutrophils # 9.19 H (1.80-7.70) X 10*3/uL Monocytes # 1.88 H (0.20-1.00) X 10*3/uL
[2021-09-23 12:08] VITALS: BP 90/53; PULSE 72; RESP 19; TEMP 98.2
[2021-09-23] MEDS: LOSARTAN 25 MG TAB PO SCH (12:40)
--- NOTE | 2021-09-23 14:13 | P.DS ---
Providers Date of admission: 09/20/21 21:21 Expected date of discharge: 09/23/21 Attending physician: Francis Rojas Consults: 09/20/21 21:22 Consult Physician Routine Consulting Provider: Edy Brown Consult Reason/Comments: medicine consult Do you want consulting provider notified?: Yes Primary care physician: Edy Brown [facility] Course: This is a 71-year-old male who is admitted to [facility] on 09/20/21 after a ground-level fall and sustaining injury to the left hip. X-rays in the emergency department revealed a left intertrochanteric hip fracture. He is admitted to our service for surgical intervention and care. Patient was taken to surgery for operative fixation of left intertrochanteric hip fracture with long intramedullary hip screw on 09/21/[address] Rojas. The procedure was performed without complication or sequelae. The patient is doing fairly well postoperatively. Vital signs and labs are stable on posto perative day #2. Patient was examined bedside today. Patient states he is doing well and his pain is controlled on ora medication. He was able to get up to the bedside chair yesterday with physical therapy. He denies chest pain, shortness of breath, nausea, vomiting, fevers, chills. No new complaints or concerns on the day of discharge. On examination, the patient is sitting up in bed. On inspection of the left hip, there are 3 clean, dry, intact Opsite dressings intact. There is mild swelling of the thigh and knee, thigh and knee are soft and compressible. Patient has good strength and ROM of the left ankle and toes. Motor and sensory function is intact of the left lower extremity. Dorsalis pedis pulse +2, left lower extremity is warm and well perfused. Calf is soft and non-tender. Patient is discharged to rehab today, pending medical clearance today. Patient will follow-up with Dr. Rojas in the office in 2 weeks. Please see med rec for accurate list of discharge medication. Patient Condition at Discharge: Serious Plan - Discharge Summary Discharge Rx Participant: No New Discharge Prescriptions: New HYDROcodone/APAP 7.5-325MG [[place] 7.5-325] 1 - 2 tab PO Q6HR PRN 7 Days #40 tab PRN Reason: Pain Docusate [Colace] 100 mg PO BID #60 capsule Aspirin 81 mg PO BID 30 Days #60 tab No Action Aspirin 81 mg PO DAILY Citalopram Hydrobromide [CeleXA] 20 mg PO HS Atorvastatin [Lipitor] 80 mg PO HS Multivit-Min/FA/Lycopen/Lutein [Centrum Silver Tablet] 1 tab PO DAILY@1200 carvediloL [Coreg] 3.125 mg PO BID #180 tablet Losartan [Cozaar] 25 mg PO DAILY@1200 #90 tab Furosemide [Lasix] 20 mg PO DAILY #90 tab Spironolactone 50 mg PO DAILY #90 tab Acetaminophen/Diphenhydramine [Tylenol PM 500-25mg] 1 tab PO HS Omeprazole 20 mg PO BID Ergocalciferol (Vitamin D2) [Drisdol (50,000 Iu)] 1,250 mcg PO QMONTHLY Discharge Medication List Aspirin 81 mg PO DAILY 04/22/15 [History] Atorvastatin [Lipitor] 80 mg PO HS 04/22/15 [History] Citalopram Hydrobromide [CeleXA] 20 mg PO HS 04/22/15 [History] Multivit-Min/FA/Lycopen/Lutein [Centrum Silver Tablet] 1 tab PO DAILY@1200 04/23/15 [History] Furosemide [Lasix] 20 mg PO DAILY #90 tab 10/03/15 [Rx] Losartan [Cozaar] 25 mg PO DAILY@1200 #90 tab 10/03/15 [Rx] Spironolactone 50 mg PO DAILY #90 tab 10/03/15 [Rx] carvediloL [Coreg] 3.125 mg PO BID #180 tablet 10/03/15 [Rx] Acetaminophen/Diphenhydramine [Tylenol PM 500-25mg] 1 tab PO HS 09/20/21 [History] Ergocalciferol (Vitamin D2) [Drisdol (50,000 Iu)] 1,250 mcg PO QMONTHLY 09/20/21 [History] Omeprazole 20 mg PO BID 09/20/21 [History] Aspirin 81 mg PO BID 30 Days #60 tab 09/23/21 [Rx] Docusate [Colace] 100 mg PO BID #60 capsule 09/23/21 [Rx] HYDROcodone/APAP 7.5-325MG [[place] 7.5-325] 1 - 2 tab PO Q6HR PRN 7 Days #40 tab 09/23/21 [Rx] Follow up Appointment(s)/Referral(s): Edy Brown MD [Primary Care Provider] - 1-2 days Francis Rojas MD [Medical Doctor] - 2 Weeks Activity/Diet/Wound Care/Special Instructions: Toe-touch weight bearing operative leg. Up with assistance, up with a walker. Keep operative dressings intact until follow-up appointment. Physical therapy for gait and balance training. Take pain medications as prescribed. Take aspirin 81mg BID x 4 weeks for blood clot prevention. Follow-up in the office in on [address] Rojas. Call the office with any questions or concerns, Discharge Disposition: TRANSFER TO SNF/ECF
--- NOTE | 2021-09-23 16:04 | DS ---
DISCHARGE SUMMARY CHIEF COMPLAINT: Fracture of left hip. HISTORY OF PRESENT ILLNESS AND PHYSICAL EXAMINATION: Details of this man's history and physical can be found in the initial workup. COURSE IN THE HOSPITAL: After admission he was placed on bedrest and started on analgesics and IV fluids and he seen by Orthopedics. He was taken for ORIF of the left hip fracture. Postoperatively he did well. Arrangements are being made for him to go to rehab and he will go to [facility]. FINAL DIAGNOSIS: 1. Fracture of left hip. 2. History of hypertension. 3. Coronary artery disease. OPERATIONS: ORIF of left hip. CONSULTATIONS: 1. Orthopedics. 2. Cardiology. He is improved. MMODL / IJN: [id number] /
== END 2021-09-23 18:21 | DRG 536 ==
LOC: EC 18:13 → 5NMEDONC 21:21
PROVIDERS: ADMIT Orthopaedic Surgery; ATTEND Orthopaedic Surgery
DX: S72.142A Displaced intertrochanteric fracture of left femur, initial encounter for closed fracture (principal); I50.22 Chronic systolic (congestive) heart failure; I25.10 Atherosclerotic heart disease of native coronary artery without angina pectoris; E78.5 Hyperlipidemia, unspecified; I25.5 Ischemic cardiomyopathy; I11.0 Hypertensive heart disease with heart failure; W10.8XXA Fall (on) (from) other stairs and steps, initial encounter; F43.10 Post-traumatic stress disorder, unspecified; Z95.5 Presence of coronary angioplasty implant and graft; Z95.4 Presence of other heart-valve replacement; Z95.810 Presence of automatic (implantable) cardiac defibrillator; I25.2 Old myocardial infarction; Z86.14 Personal history of Methicillin resistant Staphylococcus aureus infection; Y92.009 Unspecified place in unspecified non-institutional (private) residence as the place of occurrence of the external cause; Z79.82 Long term (current) use of aspirin; Z79.899 Other long term (current) drug therapy; Z95.2 Presence of prosthetic heart valve; Z87.891 Personal history of nicotine dependence; Z80.7 Family history of other malignant neoplasms of lymphoid, hematopoietic and related tissues; Z82.49 Family history of ischemic heart disease and other diseases of the circulatory system
CPT/HCPCS: 36415; 70450; 71045; 72170; 73501; 73502; 80053; 82306; 85025; 85610; 85730; 86850; 86900; 86901; 93005; 93306; 96361; 96374; 96375; 99285

== ENCOUNTER → 2024-01-26 | Outpatient (CLI) | payer MEDICARE, OTHER ==
--- NOTE | 2024-01-26 11:17 | XR ---
EXAMINATION TYPE: XR chest 2V DATE OF EXAM: 01/26/2024 COMPARISON: 09/20/2021 HISTORY: Shortness of breath TECHNIQUE: Frontal and lateral views of the chest are obtained. FINDINGS: Scattered senescent parenchymal changes noted. Hyperinflation compatible with COPD. No evidence for infiltrate. No evidence for atelectasis. Heart size is stable. Mediastinal structures are stable and grossly unremarkable. No evidence for hilar prominence. Degenerative changes dorsal spine. IMPRESSION: 1. No evidence for acute pulmonary disease. [facility], , 01/26/2024 11:14 AM
== END | disposition home or self-care (01) ==
LOC: RADXRMAIN 10:42
PROVIDERS: ATTEND Family Medicine
CPT/HCPCS: 71046